=== PATIENT | female | born 1985 | race Caucasian/White ===

== ENCOUNTER 2016-11-13 08:53 | Emergency (ER) | payer OTHER ==
[2016-11-13] MEDS ORDERED: IPRATROPIUM/ALBUTEROL 0.5/3 MG 3 ML AMPUL.NEB INHALATION ONE (09:33)
[2016-11-13 09:42] LABS: BASOPHILS 0.5 % (0.0-2.0); EOSINOPHILS 0.3 % (0.0-6.0); HEMATOCRIT 36.5 % (36.0-48.0); HEMOGLOBIN 12.6 g/dL (12.0-16.0); LYMPHOCYTES# 0.4 X 10^3uL (0.8-3.8); MEAN CELL VOLUME 92.2 fL (80.0-100.0); MEAN CORPUS. HGB CONCENTRATION 34.5 g/dL (32.0-36.0); MEAN CORPUSCULAR HEMOGLOBIN 31.8 pg (29.0-35.0); MEAN PLATELET VOLUME 8.6 fL (7.4-10.4); MONOCYTES 6.3 % (2.0-10.0); MONOCYTES# 0.3 X 10^3uL (0.2-1.0); NEUTROPHILS 84.9 % (54.0-75.0); NEUTROPHILS# 4.1 X 10^3uL (2.6-6.7); PLATELET COUNT 122 X 10^3uL (130-440); RED BLOOD COUNT 3.96 X 10^6uL (4.20-6.10); RED CELL DISTRIBUTION WIDTH 13.1 % (11.5-14.5); WHITE BLOOD COUNT 4.8 X 10^3uL (3.9-10.7)
[2016-11-13 09:49] LABS: BLOOD UREA NITROGEN 7 mg/dL (7-17); CALCIUM 8.9 mg/dL (8.4-10.2); CHLORIDE 104 mmol/L (98-107); CREATININE 0.5 mg/dL (0.5-1.0); EST GLOMERULAR FILTRATION RATE > 60 mL/min; GLUCOSE 75 mg/dL (70-100); POTASSIUM 3.8 mmol/L (3.5-5.1); SODIUM 134 mmol/L (137-145)
[2016-11-13] MEDS ORDERED: NORMAL SALINE 500 ML IV ONE ×2 (09:52→12:34)
[2016-11-13] MEDS ORDERED: OSELTAMIVIR PHOSPHATE 75 MG CAPSULE PO ONE (10:16)
[2016-11-13] MEDS ORDERED: ACETAMINOPHEN 325 MG TABLET PO ONE (10:16)
[2016-11-13] MEDS ORDERED: ONDANSETRON HCL 4 MG/2 ML VIAL ONE (12:33)
[2016-11-13] MEDS ORDERED: HYDROmorphone HCL 1 MG/ML SYR ONE (12:43)
--- NOTE | 2016-11-13 13:57 | ER PHYSICIAN DOCUMENTATION ---
Physician Documentation [facility] Name:Carolyn Hayward Age:31 yrs Sex:Female :1985 Arrival Date:11/13/2016 Time:08:53 Bed3 Private MD: Maximo Argueta Disposition: 11/13 10:07 Critical Care: not applicable. cd 12:50 Chart complete. cd Disposition: 11/13/16 10:09 Discharged to Home/Self Care. Impression: Influenza - : Type B, Dehydration. - Condition is Fair. - Discharge Instructions: DEHYDRATION (6y-Adult), INFLUENZA (Adult). - Prescriptions for Tamiflu 75 mg Oral Capsule - take 1 capsule by ORAL route every 12 hours for 5 days; 10 capsule. Zofran 4 mg Oral - take 1 tablet by ORAL route every 6 hours as needed for nausea or vomiting; 6 tablet. - Medical Reconciliation form form. - Follow up: Private Physician; When: 4- 6 days; Reason: Recheck today's complaints, Continuance of care. - Problem is new. - Symptoms are unchanged. - Notes: Drink plenty of fluids to stay well hydrated. Take Tylenol 650mg by mouth every 6 hours as needed for fever Take Tamiflu 75mg by mouth every 12 hours for 5 days Consider descending to lower elevation for the remainder of your trip. HPI: 09:00 This 31 yrs old Female presents to ER via Private Vehicle with complaints of cd Breathing Difficulty. 09:00 The patient has shortness of breath at rest, that occurred at home, and the patient has cd a history of RA, Lupus, recent travel and 5 months . Onset: The symptom(s)/episode began/occurred gradually, last night, and became worse this morning. Duration: The symptoms are continuous, and are steadily getting worse. Associated signs and symptoms: Pertinent positives: productive cough, fever, sore throat, headache, muscle aches. Reports baby still moving., Pertinent negatives: chest pain, diaphoresis, dizziness, hemoptysis, nausea, vomiting. Severity of symptoms: At their worst the symptoms were moderate in the emergency department the symptoms are unchanged. The patient has not experienced similar symptoms in the past. Patient recently arrived to [place], [place] from [place] for vacation.. 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 Aspirin Oral 2. Plaquenil Oral 3. Prednisone Oral - PMHx: RHEUMATOID ARTHRITIS; LUPUS; MIGRAINES; - PSHx: CHOLECYSTECTOMY; - Tetanus: < 10 years. - Ebola Screening: : Patient negative for fever greater than or equal to 101.5 degrees Fahrenheit, and additional compatible Ebola Virus Disease symptoms. Patient denies exposure to infectious person. Patient denies travel to an Ebola-affected area in the 21 days before illness onset. No symptoms or risks identified at this time. . - Immunization history: Flu Vaccine >1 year. - Social history: Smoking status: Patient states was never smoker of tobacco. ROS: 09:30 Constitutional: Positive for body aches, fever, poor PO intake, Negative for chills. cd 09:30 ENT: Positive for sore throat, Negative for rhinorrhea, sinus congestion, sinus pain, hoarseness. 09:30 Cardiovascular: Negative for chest pain. 09:30 Respiratory: Positive for cough, with green sputum, Negative for dyspnea on exertion, hemoptysis, orthopnea, pleurisy, shortness of breath, wheezing. 09:30 Abdomen/GI: Negative for abdominal pain, nausea, vomiting, diarrhea. 09:30 All other systems are negative. Exam: 09:30 Eyes: Pupils equal round and reactive to light, extra-ocular motions intact. Lids and cd lashes normal. Conjunctiva and sclera are non-icteric and not injected. Cornea within normal limits. Periorbital areas with no swelling, redness, or edema. ENT: Nares patent. No nasal discharge, no septal abnormalities noted. Tympanic membranes are normal and external auditory canals are clear. Oropharynx with no redness, swelling, or masses, exudates, or evidence of obstruction, uvula midline. Mucous membranes dry Neck: Trachea midline, no thyromegaly or masses palpated, and no cervical lymphadenopathy. Supple, full range of motion without nuchal rigidity, or vertebral point tenderness. No Meningismus. 09:30 Back: No spinal tenderness. No costovertebral tenderness. Full range of motion. cd Skin: Warm, dry with normal turgor. Normal color with no rashes, no lesions, and no evidence of cellulitis. MS/ Extremity: Pulses equal, no cyanosis. Neurovascular intact. Full, normal range of motion. 09:30 Neuro: Awake and alert, GCS 15, oriented to person, place, time, and situation. Cranial nerves II-XII grossly intact. Motor strength 5/5 in all extremities. Sensory grossly intact. Cerebellar exam normal. Normal gait. 09:30 Constitutional: The patient appears alert, awake, non-diaphoretic, non-toxic, well developed, well nourished, in obvious distress, moderately distressed. 09:30 Cardiovascular: Rate: normal, Rhythm: regular, Pulses: no pulse deficits are appreciated, Heart sounds: normal. 09:30 Respiratory: the patient does not display signs of respiratory distress, Respirations: normal, no acute changes, Breath sounds: are normal, clear throughout. 09:30 Abdomen/GI: Inspection: abdomen appears normal, Bowel sounds: normal, Palpation: abdomen is soft and non-tender. 09:30 Abdomen/GI: Patient is 20 weeks . FHT's = 140/minute. Good Movement. 09:30 : Gravid exam: Fundal height: consistent with gestational age, is 20 cm, heart tones: 140 beats/min, the nurse was present for the exam. Vital Signs: 09:19 BP 115 / 74; Pulse 107; Resp 24; Temp 98.7(O); Pulse Ox 95% on R/A; Weight 77.11 kg tg (R); Height 5 ft. 5 in. (165.10 cm) (R); Pain 3/10; 11:31 Pulse 99; Resp 21; Pulse Ox 91% on R/A; tg 12:43 BP 115 / 67; Pulse 92; Resp 16; Pulse Ox 98% on 2 lpm NC; tg 13:03 Pain 3/10; tg 13:48 BP 123 / 67; Pulse 92; Resp 20; Pulse Ox 92% on R/A; Pain 3/10; tg 09:19 Body Mass Index 28.29 (77.11 kg, 165.10 cm) tg MDM: 09:10 Data interpreted: Pulse oximetry: on room air is 92 %. Interpretation: normal. cd 09:23 Patient medically screened. cd 09:45 Differential diagnosis: Bronchitis pneumonia, Pulmonary Embolism reactive airway cd disease, Influenza. 10:15 Antibiotic administration: The patient is discharged and will get outpatient cd antibiotics, Tamiflu. 11:00 Data reviewed: vital signs, nurses notes, old medical records, lab test result(s), cd radiologic studies, and as a result, I will discharge patient, initiate a consult, from a OB MD for Non-stress test, administer antibiotics Tamiflu, administer IV fluids, NS bolus, NS maintenence. 11:15 Counseling: I had a detailed discussion with the patient and/or guardian regarding: the cd historical points, exam findings, and any diagnostic results supporting the discharge/admit diagnosis, lab results, radiology results, the need for outpatient follow up, for a recheck, with the patient's primary care provider, to return to the emergency department if symptoms worsen or persist or if there are any questions or concerns that arise at home. Response to treatment: the patient's symptoms have markedly improved after treatment, the patient's condition has returned to base line, patient is well hydrated. and as a result, I will discharge patient. 04 09:44 Order name: CBC AUTO DIF, MDIF/RMOR IF IND; Complete Time: 09:51 EDMS 04 09:48 Interpretation: Normal Except: PLATELET COUNT 122; NEUTROPHILS 84.9; Thrombocytopenia, cd Mild Left Shift. 11/13 09:50 Order name: BASIC METABOLIC PANEL; Complete Time: 09:51 EDMS 04 09:51 Interpretation: Normal. 04 09:51 Order name: INFLUENZA A/B; Complete Time: 09:51 EDMS 04 09:51 Interpretation: Abnormal: INFLUENZA A/B INF A NEG, B POS. 11/13 12:40 Order name: Oxygen; Complete Time: 12:40 tg Dispensed Medications: 09:25 Drug: DuoNeb (Albuterol 2.5 mg, Atrovent 0.5 mg); 3 ml; Route: Nebulizer; Infused Over: tg 7 mins; 09:46 Follow up: Response: No adverse reaction; No change in condition tg 09:47 Drug: NS 0.9% 500 ml; Route: IV; Rate: bolus; Site: right antecubital; tg 10:09 Follow up: IV Status: Completed infusion; IV Intake: 500ml tg 10:09 Drug: Acetaminophen 975 mg; Route: PO; tg 11:01 Follow up: Response: No adverse reaction tg 10:09 Drug: Tamiflu 75 mg; Route: PO; tg 11:01 Follow up: Response: No adverse reaction tg 12:35 Drug: Zofran 4 mg; Route: IVP; Infused Over: 2 mins; Site: right antecubital; tg 13:03 Follow up: Response: No adverse reaction tg 12:40 Drug: NS 0.9% 500 ml; Route: IV; Rate: bolus; Site: right antecubital; Delivery: tg [place] Tubing; 13:03 Follow up: IV Status: Completed infusion; IV Intake: 500ml tg 12:40 Drug: Dilaudid 0.5 mg; Route: IVP; Site: right antecubital; tg 13:03 Follow up: Pain 10/14 Adult; Response: No adverse reaction tg Signatures: Jr oCreas RN RN tg Maximo Riddle MD MD cd
--- NOTE | 2016-11-13 13:57 | ER NURSING DOCUMENTATION ---
Nurse's Notes [facility] Name:Carolyn Hayward Age:31 yrs Sex:Female :1985 Arrival Date:11/13/2016 Time:08:53 Bed3 Private MD: Diagnosis:Influenza-: Type B;Dehydration Presentation: 11/13 08:57 Acuity: AMANDA 3 tg 09:14 Presenting complaint: Patient states: SOB, weak/tired, cough/congestion. No ABD pain or tg contractions today. Some cramping yesterday. 5 months . Transition of care: patient was not received from another setting of care. Notified ED Physician of patient's arrival and CC Dr. Riddle notified. 09:14 Acuity: AMANDA 2 tg 09:14 Method Of Arrival: Private Vehicle tg Triage Assessment: 09:18 General: Appears uncomfortable, Behavior is anxious, cooperative. Pain: Complains of tg pain in generealized joint pain consistent with her RA. Neuro: Level of Consciousness is awake, alert, Reports weakness. Respiratory: Respiratory effort is Respiratory pattern is hyperventilation tachypnea Reports shortness of breath cough that is Onset: The symptoms/episode began/occurred 2 days ago, the patient has moderate shortness of breath. Derm: Skin is pink, warm & dry. 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 Aspirin Oral 2. Plaquenil Oral 3. Prednisone Oral - PMHx: RHEUMATOID ARTHRITIS; LUPUS; MIGRAINES; - PSHx: CHOLECYSTECTOMY; - Tetanus: < 10 years. - Ebola Screening: : Patient negative for fever greater than or equal to 101.5 degrees Fahrenheit, and additional compatible Ebola Virus Disease symptoms. Patient denies exposure to infectious person. Patient denies travel to an Ebola-affected area in the 21 days before illness onset. No symptoms or risks identified at this time. . - Immunization history: Flu Vaccine >1 year. - Social history: Smoking status: Patient states was never smoker of tobacco. Screenin:20 Infectious Disease Risk Unable to Obtain. Abuse screen: Denies threats or abuse. Denies tg injuries from another. Nutritional screening: No deficits noted. Assessment: 09:20 See Triage Assessment done by same RN. tg 12:10 Reassessment: Pt now reports migraine on right side of head. Hx of migraines in the tg past, usually able to treat with ibuprofen. However, unable to take ibuprofen now. . Vital Signs: 09:19 BP 115 / 74; Pulse 107; Resp 24; Temp 98.7(O); Pulse Ox 95% on R/A; Weight 77.11 kg tg (R); Height 5 ft. 5 in. (165.10 cm) (R); Pain 3/10; 11:31 Pulse 99; Resp 21; Pulse Ox 91% on R/A; tg 12:43 BP 115 / 67; Pulse 92; Resp 16; Pulse Ox 98% on 2 lpm NC; tg 13:03 Pain 3/10; tg 13:48 BP 123 / 67; Pulse 92; Resp 20; Pulse Ox 92% on R/A; Pain 3/10; tg 09:19 Body Mass Index 28.29 (77.11 kg, 165.10 cm) tg ED Course: 08:55 Patient arrived in ED. arc 08:57 Jr Coreas, RN is Primary Nurse. tg 08:57 Triage completed. tg 09:20 Arm band placed on Bed in low position Call Light in Reach Gowned HOB Elevated. Family tg accompanied patient. 09:20 Valuables Remains with patient. tg 09:23 Maximo Riddle MD is Attending Physician. cd 09:30 Port Xray Completed. [place] 09:36 Inserted peripheral IV: 20 gauge in right antecubital area. tg 11:01 NLC RN AT THE BEDSIDE TO PERFORM MONITORING. tg 12:41 Oxygen Oxygen administration via nasal cannula @ 2L/min. tg Administered Medications: 09:25 Drug: DuoNeb (Albuterol 2.5 mg, Atrovent 0.5 mg); 3 ml; Route: Nebulizer; Infused Over: tg 7 mins; 09:46 Follow up: Response: No adverse reaction; No change in condition tg 09:47 Drug: NS 0.9% 500 ml; Route: IV; Rate: bolus; Site: right antecubital; tg 10:09 Follow up: IV Status: Completed infusion; IV Intake: 500ml tg 10:09 Drug: Acetaminophen 975 mg; Route: PO; tg 11:01 Follow up: Response: No adverse reaction tg 10:09 Drug: Tamiflu 75 mg; Route: PO; tg 11:01 Follow up: Response: No adverse reaction tg 12:35 Drug: Zofran 4 mg; Route: IVP; Infused Over: 2 mins; Site: right antecubital; tg 13:03 Follow up: Response: No adverse reaction tg 12:40 Drug: NS 0.9% 500 ml; Route: IV; Rate: bolus; Site: right antecubital; Delivery: tg [place] Tubing; 13:03 Follow up: IV Status: Completed infusion; IV Intake: 500ml tg 12:40 Drug: Dilaudid 0.5 mg; Route: IVP; Site: right antecubital; tg 13:03 Follow up: Pain 10/14 Adult; Response: No adverse reaction tg Intake: 10:09 IV: 500ml; Total: 500ml. tg 13:03 IV: 500ml; Total: 1000ml. tg Outcome: 10:09 Discharge ordered by . iain 13:48 Discharged to home ambulatory. tg 13:48 Condition: improved 13:48 Discharge Assessment: Patient awake and alert. 13:48 Instructed on discharge instructions, follow up and referral plans. medication usage, Prescriptions given X 2. 13:48 IV D/Dez 13:56 Patient left the ED. tg Signatures: Jr Coreas, AYLIN RN tg Maximo Riddle MD MD cd Abbott, Laura Escalona, Reg Reg arc
--- NOTE | 2016-11-15 12:21 | RADIOLOGY REPORT ---
A limited single portable view of the chest, without prior films for comparison , demonstrates the heart, vessels and lungs to be unremarkable. No infiltrate, fluid or pneumothorax is seen. IMPRESSION: Unremarkable limited single portable view of the chest. MTDD
== END 2016-11-13 13:56 | disposition home or self-care (01) ==
LOC: ER 08:53
DX: O98.512 Other viral diseases complicating pregnancy, second trimester (principal); J11.1 Influenza due to unidentified influenza virus with other respiratory manifestations; E86.0 Dehydration; O99.89 Other specified diseases and conditions complicating pregnancy, childbirth and the puerperium; T70.29XA Other effects of high altitude, initial encounter; G43.009 Migraine without aura, not intractable, without status migrainosus; M06.9 Rheumatoid arthritis, unspecified; M32.9 Systemic lupus erythematosus, unspecified; Z79.82 Long term (current) use of aspirin; Z79.899 Other long term (current) drug therapy; Z79.52 Long term (current) use of systemic steroids
CPT/HCPCS: 71010; 80048; 85025; 87449; 94640; 96361; 96374; 96375; 99285; J1170; J2405; J7040; J7620